=== PATIENT | male | born 1965 ===

== ENCOUNTER 2018-03-26 14:55 | Emergency (ER) | payer OTHER ==
[2018-03-26] MEDS ORDERED: Sodium Chloride 0.9% 1,000 ML IV ONE (15:45)
[2018-03-26 16:01] LABS: BASO # 0.1 K/uL (0.0-0.2); BASO % 0.3 % (0.0-2.0); HEMOGLOBIN 13.2 g/dL (12.0-18.0); LYMPH # 0.9 K/uL (1.0-4.3); LYMPH % 5.4 % (20.0-40.0); MEAN CELL VOLUME 83.5 fL (80.0-94.0); MEAN CORPUSCULAR HGB CONC 34.7 g/dL (33.0-37.0); MEAN PLATELET VOLUME 7.4 fL (7.2-11.7); MONO # 0.9 K/uL (0.0-0.8); MONO % 5.3 % (0.0-10.0); NEUT # 15.4 K/uL (1.8-7.0); PLATELET COUNT 231 K/uL (130-400); RBC 4.57 Mil/uL (4.40-5.90); RED CELL DISTRIBUTION WIDTH 13.1 % (11.5-14.5); WHITE BLOOD COUNT 17.3 K/uL (4.8-10.8)
[2018-03-26] MEDS ORDERED: Sodium Chloride 0.9% 1,000 ML ONE (16:02)
[2018-03-26 16:19] LABS: BANDS 1 % (0-2); LYMPHOCYTE 3 % (20-40); MONOCYTE 5 % (0-10); NEUTROPHIL 91 % (50-75); PLATELET ESTIMATE NORMAL (NORMAL); TOTAL CELLS COUNTED 100
[2018-03-26 16:20] LABS: HYPOCHROMIC SLIGHT; LARGE PLATELETS PRESENT; OVALOCYTES SLIGHT; POIKILOCYTOSIS SLIGHT
[2018-03-26 16:25] LABS: ALBUMIN 3.7 g/dL (3.5-5.0); ALT/SGPT 32 U/L (21-72); AST/SGOT 35 U/L (17-59); BLOOD UREA NITROGEN 11 mg/dL (9-20); CALCIUM 8.3 mg/dl (8.6-10.4); GFR AFRICAN-AMERICAN > 60; GFR NON-AFRICAN AMERICAN > 60
[2018-03-26 17:17] VITALS: BP 108/62; PULSE 86; RESP 16; TEMP 100.3
--- NOTE | 2018-03-26 17:17 | RAD ---
PROCEDURE: CHEST RADIOGRAPH, 1 VIEW HISTORY: Generalize weakness COMPARISON: None available. FINDINGS: LUNGS: Poor inspiration with low lung volumes, crowded bronchovascular markings and mild bibasilar atelectasis right greater than left. Slight elevation right hemidiaphragm. PLEURA: No pneumothorax or pleural fluid seen. CARDIOVASCULAR: Heart size appears mildly enlarged OSSEOUS STRUCTURES: No significant abnormalities. VISUALIZED UPPER ABDOMEN: Normal. OTHER FINDINGS: None. IMPRESSION: Poor inspiration with low lung volumes, crowded bronchovascular markings and mild bibasilar atelectasis right greater than left. Slight elevation right hemidiaphragm.
--- NOTE | 2018-03-26 17:18 | C.PDOC ---
Time Seen by Provider: 03/26/18 15:32 Chief Complaint (Nursing): Flu-like Symptoms Past Medical History Vital Signs: Last Vital Signs Temp 102.9 F H 03/26/18 15:21 Pulse 105 H 03/26/18 15:21 Resp 20 03/26/18 15:21 BP 136/82 03/26/18 15:21 Pulse Ox 98 03/26/18 15:21 - Social History Hx Alcohol Use: No Hx Substance Use: No - Immunization History Hx Tetanus Toxoid Vaccination: No Hx Influenza Vaccination: No Hx Pneumococcal Vaccination: No ED Course And Treatment - Laboratory Results Result Diagrams: 03/26/18 15:58 03/26/18 15:58 O2 Sat by Pulse Oximetry: 98 Disposition Counseled Patient/Family Regarding: Studies Performed, Diagnosis, Need For Followup, Rx Given - Disposition Referrals: [facility] [Outside] Disposition: HOME/ ROUTINE Disposition Time: 17:15 Condition: STABLE Additional Instructions: FOLLOW UP WITH YOUR DOCTOR OR CLINIC IN 1-2 DAYS DRINK PLENTY OF FLUIDS USE MEDICATION DIRECTED RETURN TO EMERGENCY ROOOM IF SYMPTOMS WORSEN SEGUIMIENTO CON COLEMAN MD[place] O CLNICA EN 1-2 RIDLEY BEBER MUCHO LQUIDO USE MEDICAMENTOS SEGN SE INDICA VUELVA AL EMPLAZAMIENTO DE EMERGENCIA SI LOS SNTOMAS EMPEORAN Prescriptions: Naproxen 375 mg PO BID PRN #20 tablet PRN Reason: pain Instructions: Viral Syndrome (DC) Forms: [facility] (Upper Sorbian), Work Excuse Print Language: CZECH - Clinical Impression Clinical Impression: Influenza-like illness, Viral syndrome
[2018-03-26 17:19] VITALS: O2SAT 96
--- NOTE | 2018-03-26 17:19 | C.PDOC ---
History Of Present Illness 53 year old male presents to the emergency department with complaints of body aches, headache, generalized weakness, runny nose, and mild pressure in his chest since yesterday. He denies cough, shortness of breath, vomiting, diarrhea , dysuria/hematuria, rash. Patient denies any PMhx. Time Seen by Provider: 03/26/18 15:32 Chief Complaint (Nursing): Flu-like Symptoms History Per: Patient History/Exam Limitations: no limitations Onset/Duration Of Symptoms: Days (1) Current Symptoms Are (Timing): Still Present Severity: Moderate Location Of Pain/Discomfort: Diffuse Quality Of Discomfort: Aching (body), Pressure (chest) Associated Symptoms: denies: Vomiting, Diarrhea Past Medical History Reviewed: Historical Data, Nursing Documentation, Vital Signs Vital Signs: Last Vital Signs Temp 100.3 F H 03/26/18 17:16 Pulse 86 03/26/18 17:16 Resp 16 03/26/18 17:16 BP 108/62 03/26/18 17:16 Pulse Ox 96 03/26/18 17:23 - Medical History PMH: No Chronic Diseases Surgical History: No Surg Hx Family History: States: No Known Family Hx - Social History Hx Alcohol Use: No Hx Substance Use: No - Immunization History Hx Tetanus Toxoid Vaccination: No Hx Influenza Vaccination: No Hx Pneumococcal Vaccination: No Review Of Systems Constitutional: Positive for: Weakness (generalized), Malaise ENT: Positive for: Nose Congestion. Negative for: Ear Pain, Throat Pain Cardiovascular: Positive for: Other (pressure ) Respiratory: Positive for: Other (pressure). Negative for: Cough, Shortness of Breath Gastrointestinal: Negative for: Nausea, Vomiting, Abdominal Pain, Diarrhea Genitourinary: Negative for: Dysuria Skin: Negative for: Rash Neurological: Positive for: Headache Physical Exam - Physical Exam Appears: Well, Non-toxic, In Acute Distress (appears mildly uncomfortable) Skin: Normal Color, Warm, Dry, No Rash Eye(s): bilateral: Normal Inspection Oral Mucosa: Moist Throat: Normal, No Erythema, No Exudate Neck: Normal, Supple, Other (no meningismus ) Cardiovascular: Rhythm Regular Respiratory: Normal Breath Sounds, No Rales, No Rhonchi, No Wheezing Gastrointestinal/Abdominal: Normal Exam, Bowel Sounds, Soft, No Tenderness Extremity: Normal ROM, No Pedal Edema Neurological/Psych: Oriented x3 ED Course And Treatment - Laboratory Results Result Diagrams: 03/26/18 15:58 03/26/18 15:58 ECG: Interpreted By Me, Viewed By Me (sinus tachycardia 105 bpm, normal axis, no acute ST/T wave changes) ECG Interpretation: Abnormal (tachycardic ) Rate From EC O2 Sat by Pulse Oximetry: 96 (RA) Pulse Ox Interpretation: Normal - Radiology CXR: Interpreted by Me, Viewed By Me CXR Interpretation: Yes: No Acute Disease. No: Infiltrates Progress Note: Plan: Blood work, EKG, CXR ordered and reviewed. Patient given IV NS bolus, PO tylenol for fever, IV toradol for pain. Reevaluation Time: 17:20 Reassessment Condition: Improved (On reassessment, patient is resting comfortably and states he is feeling better. Fever has dropped appropriately, and vitals have improved. On exam, abdomen is soft and nontender. CXR (-) for acute infiltrate. Symptoms likely viral - patient given Rx for naprosyn, and instructed to get rest, drink plenty of fluids and to follow up with PMD/clinic in 1-2 days. He understands he should return to ED if symptoms worsen.) Disposition Counseled Patient/Family Regarding: Studies Performed, Diagnosis, Need For Followup, Rx Given - Disposition Referrals: [facility] [Outside] Disposition: HOME/ ROUTINE Disposition Time: 17:20 Condition: STABLE Additional Instructions: FOLLOW UP WITH YOUR DOCTOR OR CLINIC IN 1-2 DAYS DRINK PLENTY OF FLUIDS USE MEDICATION DIRECTED RETURN TO EMERGENCY ROOOM IF SYMPTOMS WORSEN SEGUIMIENTO CON COLEMAN MD[place] O CLNICA EN 1-2 RIDLEY BEBER MUCHO LQUIDO USE MEDICAMENTOS SEGN SE INDICA VUELVA AL EMPLAZAMIENTO DE EMERGENCIA SI LOS SNTOMAS EMPEORAN Prescriptions: Naproxen 375 mg PO BID PRN #20 tablet PRN Reason: pain Instructions: Viral Syndrome (DC) Forms: [facility] (Danish), Work Excuse Print Language: CITIZEN OF [place] - Clinical Impression Clinical Impression: Influenza-like illness, Viral syndrome - Scribe Statement The provider has reviewed the documentation as recorded by the Scribe (Naveed Porter) Provider Attestation: All medical record entries made by the Scribe were at my direction and personally dictated by me. I have reviewed the chart and agree that the record accurately reflects my personal performance of the history, physical exam, medical decision making, and the department course for this patient. I have also personally directed, reviewed, and agree with the discharge instructions and disposition.
--- NOTE | 2018-03-29 08:44 | CARD ---
APPROVED REPORT EKG Measurement Heart [id number] [id number] <Conclusion> Sinus tachycardia Otherwise normal ECG
== END 2018-03-26 17:29 | disposition home or self-care (01) ==
LOC: C.ER 14:55
DX: J11.1 Influenza due to unidentified influenza virus with other respiratory manifestations (principal)
CPT/HCPCS: 71045; 80053; 82948; 85025; 87804; 93005; 96361; 96374; 99285; J1885; J7040